=== PATIENT | male | born 1990 | race Caucasian/White ===

== ENCOUNTER 2021-10-19 10:52 | Inpatient (IN) | payer MEDICAID, OTHER ==
[2021-10-19] MEDS ORDERED: ONDANSETRON 4 MG TAB PO STA (11:18)
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
[2021-10-19] MEDS ORDERED: ACETAMINOPHEN TAB 325 MG TAB PO PRN (14:43)
[2021-10-19] MEDS ORDERED: MAGNESIUM HYDROXIDE 2,400 MG/10 ML CUP PO PRN (14:43)
[2021-10-19] MEDS ORDERED: HALOPERIDOL LACTATE 5 MG/ML 1 ML VIAL IM PRN (14:47)
[2021-10-19] MEDS ORDERED: haloperidoL 5 MG TAB PO PRN (14:47)
[2021-10-19] MEDS ORDERED: LORazepam 2 MG/ML INJ IM PRN (14:47)
[2021-10-19] MEDS ORDERED: LOPERAMIDE 2 MG CAP PO PRN (14:48)
[2021-10-19] MEDS: LORazepam 1 MG TAB PO PRN ×2 (15:40→19:16)
[2021-10-19 16:02] LABS: Amphetamine Screen,Urine Detected (NotDetected); Barbiturate Screen,Urine Not Detected (NotDetected); Benzodiazepines Screen,Urine Not Detected (NotDetected); Cocaine Screen,Urine Detected (NotDetected); Methadone Screen, Urine Not Detected (NotDetected); Opiate Screen,Urine Not Detected (NotDetected); Oxycodone Screen, Urine Not Detected (NotDetected); Phencyclidine Screen,Urine Not Detected (NotDetected); Tricyclic Antidepressant,Urine Not Detected (NotDetected); Urn Cannabinoid Scrn Detected (NotDetected)
[2021-10-19] MEDS ORDERED: ONDANSETRON 4 MG TAB PO PRN ×2 (17:23→23:09)
[2021-10-19] MEDS: NICOTINE 14MG/24HR PATCH TRANSDERM SCH (18:49)
[2021-10-19] MEDS ORDERED: risperiDONE 2 MG TAB PO SCH (21:00)
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
[2021-10-20] MEDS: LORazepam 1 MG TAB PO PRN (01:33)
[2021-10-20] MEDS: IBUPROFEN 600 MG TAB PO PRN (01:33)
[2021-10-20 07:36] LABS: Basophils % (A) 0 %; Eosinophils # (A) 0.1 k/uL (0-0.7); Eosinophils % (A) 1 %; HCT 51.6 % (39.0-53.0); HGB 17.6 gm/dL (13.0-17.5); Lymphocytes # (A) 2.3 k/uL (1.0-4.8); Lymphocytes % (A) 17 %; MCHC 34.1 g/dL (31.0-37.0); MCV 87.9 fL (80.0-100.0); Mean Platelet Volume 7.6; Monocytes # (A) 0.9 k/uL (0-1.0); Monocytes % (A) 7 %; Neutrophils # (A) 9.6 k/uL (1.3-7.7); Neutrophils % (A) 73 %; Platelet Count 274 k/uL (150-450); RBC 5.87 m/uL (4.30-5.90); RDW 12.8 % (11.5-15.5); WBC 13.2 k/uL (3.8-10.6)
[2021-10-20 07:51] LABS: ALT 66 U/L (4-49); AST 36 U/L (17-59); African American GFR (CKD) >90 (>60 ml/min/1.73 sqM); Alkaline Phosphatase 81 U/L (38-126); Anion Gap 13 mmol/L; Blood Urea Nitrogen 23 mg/dL (9-20); Calcium 10.1 mg/dL (8.4-10.2); Carbon Dioxide 23 mmol/L (22-30); Chloride 99 mmol/L (98-107); Glucose 122 mg/dL (74-99); Non-African American GFR(CKD) >90 (>60 ml/min/1.73 sqM); Potassium 4.2 mmol/L (3.5-5.1); Sodium 135 mmol/L (137-145); Total Bilirubin 1.3 mg/dL (0.2-1.3); Total Protein 9.2 g/dL (6.3-8.2)
[2021-10-20] MEDS: NICOTINE 14MG/24HR PATCH TRANSDERM SCH (08:52)
[2021-10-20] MEDS: OLANZapine 5 MG TAB PO SCH ×3 (10:33→22:38)
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
[2021-10-20] MEDS: MAG HYDROX/AL HYDROX/SIMETH 30 ML CUP PO PRN (19:46)
[2021-10-21] MEDS: MAG HYDROX/AL HYDROX/SIMETH 30 ML CUP PO PRN (05:18)
[2021-10-21] MEDS: OLANZapine 5 MG TAB PO SCH ×3 (08:21→21:18)
[2021-10-21] MEDS: NICOTINE 14MG/24HR PATCH TRANSDERM SCH (08:21)
[2021-10-21] MEDS: IBUPROFEN 600 MG TAB PO PRN (12:20)
--- NOTE | 2021-10-21 16:48 | PN ---
PROGRESS NOTE DATE OF SERVICE: 10/21/2021. CHIEF COMPLAINT: The patient was agitated, having high anxiety, and stated he was struggling with withdrawal from abusive substances. INTERVAL HISTORY: Patient has been doing fair. He had a quiet day yesterday. He was out on the unit. He wanders about. He does interact with others. He did not attend groups yesterday. He was cooperative with care. He slept fair last night. He said he would sleep for an hour and then toss and turn for two more hours. It is noted that Nursing documented that he appeared to sleep quietly for 5 hours. Today he has been up and out on the unit. He socializes with a few others. He has not attended groups today. He does say that he is feeling a little bit better in regard to what he perceives as withdrawal symptoms. He said he was having more problems with it in the last two days and this thinks that he is maybe "50% calmer." He seems to have reasonable insight in regard to expectations through the early course of withdrawal. He tolerates his psychotropic medications. MENTAL STATUS EXAM: Patient sat with a little restlessness. He gave fairly good eye contact. He answered questions appropriately. His thoughts were clear. He was spontaneous and interactive. His affect was a little constricted. His mood was quiet though not clearly down or depressed. He did not appear to be significantly distressed. There was no indication of thought disorder. There was no indication of thoughts of harm. He was oriented and alert. ASSESSMENT: I will continue the current diagnosis and treatment plan. I will continue psychotropic medications the same. I again reviewed medication issues in regard to indication, potential side effects and concerns relating to metabolics and movement disorder issues. We continued to discuss the process of withdrawal and expectations. Patient will be making contacts on Saturday for referral options. We will focus on stabilization and discharge planning. MMODL / IJN: [id number] /
[2021-10-21] MEDS: traZODone HCL 50 MG TAB PO SCH (21:18)
[2021-10-22 04:52] VITALS: RESP 18
[2021-10-22] MEDS: OLANZapine 5 MG TAB PO SCH ×3 (08:57→21:10)
[2021-10-22] MEDS: NICOTINE 14MG/24HR PATCH TRANSDERM SCH (08:57)
[2021-10-22] MEDS: IBUPROFEN 600 MG TAB PO PRN (10:41)
--- NOTE | 2021-10-22 12:25 | PN ---
PROGRESS NOTE DATE OF SERVICE: 10/22/2021. CHIEF COMPLAINT: The patient was agitated, having high anxiety and stated he was struggling with withdrawal from abuses substances. INTERVAL HISTORY: Patient has been doing fairly well. He had a quiet day yesterday. He comes out on the unit. He does interact with others. He did not attend groups yesterday though said he would make an effort in that direction. He said he slept better last night compared to previous nights. He slept about 5 and half or 6 hours. Today he has been up. He has been out on the unit. He tends to have a quiet manner, though seems to be appropriate in his interactions. He has been cooperative with all aspects of care. He says that he recognizes some ups and downs in how he feels both physically and mentally, which he relates to withdrawal. He says overall he is doing somewhat better compared to what he has been through in the past. He continues to be quite focused on the idea of getting into rehab. He also says that he has the support of his boss with whom he also resides. He says that is a very positive thing for him and if he did not have that person in his life he thinks he would be struggling to quite a significant degree. He will be working with social Work to make contacts for referral to a substance use inpatient program. He tolerates his psychotropic medications. MENTAL STATUS: Patient sat with a little restlessness he gave good eye contact. He answered questions appropriately. His thoughts were clear. His affect was a little constricted. He had a quiet, so friendly manner. His mood was reserved. He did appear to be significantly distressed. There was no indication of thought disorder. Cognition was clear. ASSESSMENT: I will continue the current diagnosis and treatment plan. I will continue psychotropic medications the same, namely Zyprexa 5 mg 3 times a day. We again reviewed the indication for Zyprexa to help reduce physiologic stress response relating to acute substance withdrawal. In addition, the main focus will be to support him in getting referral to an inpatient substance use program. We will focus on stabilization and discharge planning. MMSUSNAL / CYNTHIAN: [id number] /
[2021-10-22] MEDS: traZODone HCL 50 MG TAB PO SCH (21:09)
[2021-10-23 03:33] VITALS: BP 140/78; PULSE 72; TEMP 97.7
[2021-10-23] MEDS: NICOTINE 14MG/24HR PATCH TRANSDERM SCH (09:05)
[2021-10-23] MEDS: OLANZapine 5 MG TAB PO SCH (09:05)
[2021-10-23] MEDS ORDERED: traZODone HCL 50 MG TAB PO PRN (11:05)
--- NOTE | 2021-10-23 13:36 | P.PN ---
Progress Note - Text Progress Note Date: 10/23/21 Interval History: Patient was seen sitting in his room today and was directable and agreeable to speak with development writer in the office. Patient was rambling at times and was fairly tangential/circumstantial. He spoke about him relapsing back on drugs and was using heavily before coming into the hospital. He claims that rehab did help him in the past which has helped him stay sober and is interested in doing it once again. He had the number in his hand however claims that he would like to try to call them today. He did minimize at times is substance use and claims that she wants to go home first before going to rehab to take care of things which she was vague about. He recognizes his need for rehab and his likelihood of relapsing. He states that the voices have been improving since being on the medication however did state that he is feeling tired during the day. He was agreeable to have his Zyprexa changed to nighttime dosing. At this time patient denies any suicidal or homical ideations, intent or plan. Patient denies visual hallucinations and denies any paranoia or delusions. Patient denies any side effects from the medications and has been compliant with meds. Mental Status Exam: General Appearance: Patient appears to be thin, bald, stated age is alert, directable, and attempts to be cooperative. Behavior: Patient is calmly seated without any agitated behavior. Speech: Patient's speech is fluent and nonpressured. Rambles at times. Mood/Affect: Mood is improving mildly, affect is congruent Suicidality/Homicidality: Patient denies having any suicidal or homicidal ideation intent or plan. Perceptions: Patient denies any visual hallucinations and claims that the hallucinations have been mildly improving. Though content/process: There is no evidence of any delusional thought content and thought process is linear and goal-directed. Rambles at times. 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 Patient has signed adult voluntary form and medication consent and was placed in patient's chart. -Medications: Change Zyprexa to 10 mg daily at bedtime for psychosis/insomnia/mood stabilization. Trazodone 50 mg daily at bedtime when necessary for insomnia. -When necessary Ativan and Haldol for agitation/aggression. -NRT - nicotine patch -SW on board for discharge planning. Encouraged the patient to participate in milieu. Likely discharge in 1-2 days. Encourage patient today to call rehab to set up a intake appointment, will attempt to coordinate an intake date prior to discharge home.
[2021-10-23] MEDS: IBUPROFEN 600 MG TAB PO PRN (16:11)
[2021-10-23] MEDS ORDERED: OLANZapine 10 MG TAB PO SCH (21:00)
[2021-10-24] MEDS: NICOTINE 14MG/24HR PATCH TRANSDERM SCH (08:23)
--- NOTE | 2021-10-24 11:08 | P.DS ---
Providers Date of admission: 10/19/21 14:39 Expected date of discharge: 10/24/21 Attending physician: Mj Johnson MD Consults: 10/19/21 14:43 Consult Physician Routine Consulting Provider: Carlos Physician Consult Reason/Comments: history and physical/medical management Do you want consulting provider notified?: Yes Primary care physician: Stated None - Discharge Diagnosis(es) (1) Unspecified psychosis Current Visit: Yes Status: Acute Priority: High (2) Methamphetamine abuse Current Visit: Yes Status: Acute Priority: High (3) Cocaine abuse Current Visit: Yes Status: Acute Priority: High (4) Nicotine dependence Current Visit: Yes Status: Acute Priority: Low (5) Cannabis use disorder, mild, abuse Current Visit: Yes Status: Acute Priority: Medium Hospital Course: Admission HPI: Admission note was completed by Dr. Valdes "the patient is a 31-year-old single male. He lives with in a home with his mother. He presented to the ED for evaluation. The patient was agitated, having high anxiety, and stated he was struggling with withdrawal and abuse of substances. The patient has not had a prior psychiatric hospitalization. He has been in a number of rehabilitation facilities for substance use issues. He has also had [facility] time for the same. His current situation is that he has been regularly using opioids and intermittently methamphetamines. He said that of late his main use has been fentanyl. Sometimes he will combine that with cocaine. She said that he uses methamphetamine on and off though some of the time he may use meth in order to help when he might be withdrawing from opioids. He has had long-term use of abuses substances. The only times he has been off substances for any extended period is why he was in [facility]. In 2020 he was offered off hard drugs for about 2 months in the springtime, though continued smoking marijuana on a daily basis. He said the main drug use she was had has been opioids, including fentanyl. He notes that he has never had an overdose in general he believes he has used the drugs in somewhat "safe" manner, even though he acknowledges that he uses drugs mainly to "maintain myself". He says he no longer gets high from abuse of substances. His last rehab admission was in 2018 as part of a requirement from incarceration. She notes that at one point in the past he had been on Gabitril 4 a few months and thought that the patrol was very helpful for him in staying away from opioids. He said the only problem with Limbitrol was that it would seem to wear out by a week for. He notes that he stopped drugs about 3 days ago. His last use included fentanyl cocaine and methamphetamine. He has been smoking marijuana. He said in the last few days he became increasingly restless and distressed. He had periods where he felt panicky. With prompted him in coming to the hospital was that he said that at his house he was climbing the [place] and felt he just needed to escape to someplace different. He also said he also recognized that he needed serious help with his drug abuse problems. He notes that for an extended period of time his sleep pattern has been unstable and he has not been sleeping well. He has also and downs with auditory hallucinations and paranoid thinking that mainly related to different points of time and his drug use. He may tend to get paranoid thinking when he is starting to withdraw from his drugs. He will get hallucinations if he seems to use too much of one drug or another. He acknowledges that persistently he his mood has been down in part relating to the distress she experiences for not being able to gain control of his drug use. He says a big issue that looms him heavy for him is that he can work and make a fair amount of money, though then he simply turns around and spends the money on drugs. He feels that this is a vicious cycle for him. He denies any current or past issues with suicidal thinking or self harmful behavior. He is not currently on any psychotropic medications. He was vague about past trauma or posttraumatic issues. The patient indicated that he was very open and hoping to make arrangements to be transferred to a substance use unit from this hospital stay. He is admitted for further evaluation." Hospital course: Upon admission to the unit patient was directable and agreeable to commence treatment and signed adult voluntary form. Patient got along well with other patients on the unit and followed unit protocol. Patient was compliant with the medications and denied any side effects throughout hospital course. Patient was started on Zyprexa and increased her dose of 10 mg daily at bedtime for psychosis/insomnia/mood stabilization, trazodone 50 mg daily at bedtime when necessary for insomnia. Patient spoke of his stressors and engaged in therapy both group and individual. Patient was also seen by medical team for history and physical exam. Throughout the course of the hospitalization patient gradually improved with regards to mood, anxiety, sleep and returned back to their baseline level of functioning. On the day of discharge patient denied any suicidal or homicidal ideations intent or plan denied any auditory or visual hallucinations. Patient endorsed wanting to live for his health and family. The patient denied any access to guns or weapons. Patient denied any paranoia and did not endorse any delusions. Patient does have a significant history of substance abuse and was counseled on abstaining from all substances including alcohol and marijuana. Patient was offered however declined inpatient substance- abuse rehab. Patient was also counseled on the medications and need for regular compliance and was encouraged to follow-up with their outpatient appointment for mental health and also for primary care. Prior to discharge a family meeting will be arranged by social services analyst to answer any questions and ensure safety upon discharge. Mental status exam: General Appearance: Patient appears to be thin, bald, stated age is alert, pleasant, and cooperative. Patient is in no acute distress and has improved hygiene and grooming Behavior: Patient is calmly seated without any agitated behavior. Speech: Patient's speech is fluent and nonpressured. Mood/Affect: Patient reports their mood is "better", affect is congruent Suicidality/Homicidality: Patient denies having any suicidal or homicidal ideation intent or plan. Perceptions: Patient denies any auditory or visual hallucinations. Though content/process: There is no evidence of any delusional thought content and thought process is linear and goal-directed. more future oriented Memory and concentration: AOX3, grossly intact for the purposes of this session. Can spell "WORLD" backwards correctly. Judgment and insight: chronically poor, however has improved with guarded prognosis Impression: Psychosis unspecified, rule out secondary to substance use Methamphetamine abuse Cocaine abuse Cannabis use disorder mild Nicotine dependence Plan: -Continue with discharge today as patient has improved and stabilized psychiatrically and is not currently an imminent threat to himself and/or others. Patient will remain at chronically elevated risk for harm to self and/or others due to his impulsivity and polysubstance abuse. -Continue medications: Zyprexa 10 mg daily at bedtime for psychosis/insomnia/mood stabilization, trazodone 50 mg daily at bedtime for insomnia when necessary. -Patient was counseled on the need for medication compliance and appropriate follow-up at mental health and also primary care for medical issues. Patient verbalized understanding and agreed. -Social work to arrange for and conduct family meeting to ensure safety upon discharge and answer any questions/concerns. Social work also to arrange for patients follow up appointments for psychiatric care along with follow up with primary care provider. -Patient counseled on abstaining from recreational drugs and marijuana and alcohol. Was informed/educated on the adverse effects on their physical and mental health. Patient verbally agreed and understood. Patient was offered substance abuse treatment however declined at this time. -Patient was instructed to return to the hospital or seek immediate medical care if their psychiatric or medical symptoms do worsen or reoccur. Allergies Allergy/AdvReac Type Severity Reaction Status Date / Time No Known Allergies Allergy Verified 10/19/21 11:51 Laboratory Results WBC 13.2 k/uL (3.8-10.6) H 10/20/21 07:02 RBC 5.87 m/uL (4.30-5.90) 10/20/21 07:02 Hgb 17.6 gm/dL (13.0-17.5) H 10/20/21 07:02 Hct 51.6 % (39.0-53.0) 10/20/21 07:02 MCV 87.9 fL (80.0-100.0) 10/20/21 07:02 MCH 30.0 pg (25.0-35.0) 10/20/21 07:02 MCHC 34.1 g/dL (31.0-37.0) 10/20/21 07:02 RDW 12.8 % (11.5-15.5) 10/20/21 07:02 Plt Count 274 k/uL (150-450) 10/20/21 07:02 MPV 7.6 10/20/21 07:02 Neutrophils % 73 % 10/20/21 07:02 Lymphocytes % 17 % 10/20/21 07:02 Monocytes % 7 % 10/20/21 07:02 Eosinophils % 1 % 10/20/21 07:02 Basophils % 0 % 10/20/21 07:02 Neutrophils # 9.6 k/uL (1.3-7.7) H 10/20/21 07:02 Lymphocytes # 2.3 k/uL (1.0-4.8) 10/20/21 07:02 Monocytes # 0.9 k/uL (0-1.0) 10/20/21 07:02 Eosinophils # 0.1 k/uL (0-0.7) 10/20/21 07:02 Basophils # 0.0 k/uL (0-0.2) 10/20/21 07:02 Sodium 135 mmol/L (137-145) L 10/20/21 07:02 Potassium 4.2 mmol/L (3.5-5.1) 10/20/21 07:02 Chloride 99 mmol/L (98-107) 10/20/21 07:02 Carbon Dioxide 23 mmol/L (22-30) 10/20/21 07:02 Anion Gap 13 mmol/L 10/20/21 07:02 BUN 23 mg/dL (9-20) H 10/20/21 07:02 Creatinine 0.99 mg/dL (0.66-1.25) 10/20/21 07:02 Est GFR (CKD-EPI)AfAm >90 (>60 ml/min/1.73 sqM) 10/20/21 07:02 Est GFR (CKD-EPI)NonAf >90 (>60 ml/min/1.73 sqM) 10/20/21 07:02 Glucose 122 mg/dL (74-99) H 10/20/21 07:02 Calcium 10.1 mg/dL (8.4-10.2) 10/20/21 07:02 Total Bilirubin 1.3 mg/dL (0.2-1.3) 10/20/21 07:02 AST 36 U/L (17-59) 10/20/21 07:02 ALT 66 U/L (4-49) H 10/20/21 07:02 Alkaline Phosphatase 81 U/L (38-126) 10/20/21 07:02 Total Protein 9.2 g/dL (6.3-8.2) H 10/20/21 07:02 Albumin 5.0 g/dL (3.5-5.0) 10/20/21 07:02 TSH 1.050 mIU/L (0.465-4.680) 10/20/21 07:02 Urine Opiates Screen Not Detected (NotDetected) 10/19/21 15:20 Ur Oxycodone Screen Not Detected (NotDetected) 10/19/21 15:20 Urine Methadone Screen Not Detected (NotDetected) 10/19/21 15:20 Ur Propoxyphene Screen Not Detected (NotDetected) 10/19/21 15:20 Ur Barbiturates Screen Not Detected (NotDetected) 10/19/21 15:20 U Tricyclic Antidepress Not Detected (NotDetected) 10/19/21 15:20 Ur Phencyclidine Scrn Not Detected (NotDetected) 10/19/21 15:20 Ur Amphetamines Screen Detected (NotDetected) H 10/19/21 15:20 U Methamphetamines Scrn Detected (NotDetected) H 10/19/21 15:20 U Benzodiazepines Scrn Not Detected (NotDetected) 10/19/21 15:20 Urine Cocaine Screen Detected (NotDetected) H 10/19/21 15:20 U Marijuana (THC) Screen Detected (NotDetected) H 10/19/21 15:20 Coronavirus (PCR) Not Detected (Not Detectd) 10/19/21 13:11 Vital Signs Temp 97.7 F 10/23/21 03:32 Pulse 72 10/23/21 03:32 Resp 18 10/23/21 03:32 BP 140/78 10/23/21 03:32 Pulse Ox 97 10/22/21 04:50 Patient Condition at Discharge: Stable Plan - Discharge Summary New Discharge Prescriptions: New traZODone HCL [Desyrel] 50 mg PO HS PRN 30 Days tab PRN Reason: Insomnia Nicotine 14Mg/24Hr Patch [Habitrol] 1 patch TRANSDERM DAILY 14 Days patch Ibuprofen [Motrin] 600 mg PO TID PRN tab PRN Reason: Breakthrough Pain OLANZapine [ZyPREXA] 10 mg PO HS 30 Days tab Discharge Medication List Ibuprofen [Motrin] 600 mg PO TID PRN tab 10/24/21 [Rx] Nicotine 14Mg/24Hr Patch [Habitrol] 1 patch TRANSDERM DAILY 14 Days patch 10/24/21 [Rx] OLANZapine [ZyPREXA] 10 mg PO HS 30 Days tab 10/24/21 [Rx] traZODone HCL [Desyrel] 50 mg PO HS PRN 30 Days tab 10/24/21 [Rx] Follow up Appointment(s)/Referral(s): None,Stated [Primary Care Provider] - 1-2 days Activity/Diet/Wound Care/Special Instructions: Activity and diet as tolerated. Avoid the use of street drugs and alcohol. Take all medications as prescribed. When you are in need of refills on your medications please contact your medical provider and/or outpatient psychiatrist to have this done. Please go to scheduled outpatient appointment for aftercare treatment. If symptoms return or become worse, call the crisis line at and/or go to the nearest emergency room for evaluation Discharge Disposition: HOME SELF-CARE
== END 2021-10-24 18:50 | disposition home or self-care (01) | DRG 885 ==
LOC: EC 10:52 → 3MHU 14:39
PROVIDERS: ADMIT Psychiatry & Neurology Psychiatry; ATTEND Psychiatry & Neurology Psychiatry
DX: F29 Unspecified psychosis not due to a substance or known physiological condition (principal); F19.20 Other psychoactive substance dependence, uncomplicated; F15.10 Other stimulant abuse, uncomplicated; F17.200 Nicotine dependence, unspecified, uncomplicated; F14.10 Cocaine abuse, uncomplicated; F12.10 Cannabis abuse, uncomplicated; F11.10 Opioid abuse, uncomplicated; F32.A Depression, unspecified; F41.9 Anxiety disorder, unspecified; G47.00 Insomnia, unspecified; Z79.899 Other long term (current) drug therapy; Z20.822 Contact with and (suspected) exposure to COVID-19
CPT/HCPCS: 80053; 80306; 82075; 84443; 85025; 87635; 99285

== ENCOUNTER 2021-10-24 21:24 | Emergency (ER) | payer OTHER ==
[2021-10-24 21:29] VITALS: TEMP 98.6
[2021-10-24] MEDS ORDERED: PROPARACAINE 0.5% OPHTH DROPS 15 ML BTL BOTH EYES STA (22:03)
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
[2021-10-24] MEDS ORDERED: FLUORESCEIN STRIPS 1 MG STRIP BOTH EYES ONE (23:29)
[2021-10-25] MEDS ORDERED: OFLOXACIN 0.3% OPHTH DROPS 5 ML BOTTLE BOTH EYES SCH
[2021-10-25 01:26] VITALS: BP 142/78; PULSE 72; RESP 16
== END 2021-10-25 01:25 | disposition home or self-care (01) ==
LOC: EC 21:24
DX: Z77.098 Contact with and (suspected) exposure to other hazardous, chiefly nonmedicinal, chemicals (principal); F32.A Depression, unspecified; F17.200 Nicotine dependence, unspecified, uncomplicated; F12.90 Cannabis use, unspecified, uncomplicated
CPT/HCPCS: 99284